=== PATIENT | female | born 2000 | race Hispanic/Latino ===

== ENCOUNTER 2022-05-30 18:10 | Emergency (ER) | END 2022-05-30 19:00 | disposition home or self-care (01) | LOC: CSHERS 18:10 | DX: S61.301A Unspecified open wound of left index finger with damage to nail, initial encounter (principal); X58.XXXA Exposure to other specified factors, initial encounter | CPT/HCPCS: 99283 ==

== ENCOUNTER 2024-08-27 11:10 | Inpatient (IN) | payer OTHER ==
[2024-08-27] MEDS ORDERED: Carboprost 250 MCG/ML AMP IM PRN (11:34)
[2024-08-27] MEDS ORDERED: Promethazine HCl 25 MG/ML VIAL IM PRN (11:34)
[2024-08-27] MEDS ORDERED: Misoprostol 200 MCG TAB PR PRN (11:34)
[2024-08-27] MEDS ORDERED: Ibuprofen 800 MG TAB PO PRN (11:34)
[2024-08-27] MEDS ORDERED: Diphenoxylate HCl/Atropine Tablet PO PRN (11:34)
[2024-08-27] MEDS ORDERED: Lidocaine 1% (PF) 30 ML VIAL SC PRN (11:34)
[2024-08-27] MEDS ORDERED: Tranexamic Acid 1,000 MG/10 ML VIAL IVP PRN (11:34)
[2024-08-27] MEDS ORDERED: Methylergonovine 0.2 MG/ML VIAL IM PRN (11:34)
[2024-08-27] MEDS ORDERED: hydrALAZINE 20 MG/ML VIAL SLOW IVP PRN (11:34)
[2024-08-27] MEDS ORDERED: Oxytocin 30 units/NS 500 ML 500 ML IV SCH ×2 (11:45)
[2024-08-27 11:52] LABS: Hematocrit 32.8 % (34.9-44.5); Hemoglobin 10.2 g/dL (12.0-15.5); Mean Corpuscular HGB CONC 31.1 g/dL (32.0-36.0); Mean Corpuscular Hemoglobin 23.8 pg (27.0-33.0); Mean Corpuscular Volume 76.5 fL (81.6-98.3); Platelet Count 392 10x3/uL (150-450); RBC Distribution Width 13.5 % (11.5-14.5); Red Blood Cell (RBC) Count 4.29 10x6/uL (3.90-5.03); White Blood Cell (WBC) Count 13.62 10x3/uL (3.5-10.5)
[2024-08-27 12:45] LABS: HBsAg Index 0.17 S/CO (0-0.99); Hep B Surf Ag - L&D Non-Reactive S/CO (NonReactive)
[2024-08-27 12:46] LABS: Syphilis Antibody Nonreactive (Nonreactive); Syphilis Antibody Index 0.08 S/CO (<1.00 Non-Reactive)
[2024-08-27 18:59] VITALS: BMI 38.9
[2024-08-27] MEDS: Lactated Ringer's 1,000 ML IV SCH (19:22)
[2024-08-27] MEDS: fentaNYL 50 mcg/mL 1 mL Vial ONE (20:19)
[2024-08-27] MEDS: fentaNYL 50 mcg/mL 1 mL Vial SLOW IVP PRN (22:27)
[2024-08-28] MEDS: fentaNYL/Ropivacaine Epidural 100 ML ONE (02:23)
[2024-08-28] MEDS: Misoprostol 100 MCG TAB VAG SCH (02:24)
[2024-08-28] MEDS ORDERED: Naloxone HCl 0.4 mg/ml Vial IVP PRN ×2 (02:46)
[2024-08-28] MEDS ORDERED: Moisturizing Cream (Eucerin) 113 GM JAR TOP PRN (02:46)
[2024-08-28] MEDS ORDERED: diphenhydrAMINE 50 MG/ML VIAL IVP PRN (02:46)
[2024-08-28] MEDS ORDERED: Ondansetron PF 4 MG/2 ML Vial IVP PRN ×2 (02:46→21:41)
[2024-08-28] MEDS ORDERED: ePHEDrine Sulfate 50 MG/10 ML VIAL SLOW IVP PRN (02:46)
[2024-08-28] MEDS ORDERED: Lactated Ringer's 500 ML IV PRN (02:46)
[2024-08-28] MEDS ORDERED: Promethazine HCl 25 MG/ML VIAL IM PRN ×2 (02:46→21:41)
[2024-08-28] MEDS ORDERED: Communication Order-Pharmacy FS SCH (03:00)
[2024-08-28 05:55] LABS: ALT (SGPT) 9 U/L (Less than 34); AST (SGOT) 16 U/L (11-34); Albumin 2.8 g/dL (3.1-4.5); Alkaline Phosphatase 148 U/L (40-110); Anion Gap 11 mmol/L (10-20); BUN (Urea Nitrogen) 9 mg/dL (7.0-18.7); Bilirubin, Total 0.5 mg/dL (0.3-1.2); Calc. Creatinine Clearance 232 mL/min (70-130); Calcium 8.6 mg/dL (7.8-10.44); Carbon Dioxide 21 mmol/L (22-29); Chloride 108 mmol/L (98-107); Estimated GFR 127; Globulin 3.3 g/dL (2.4-3.5); Glucose 73 mg/dL (70-105); Protein, Total 6.1 g/dL (6.0-8.3); Sodium 136 mmol/L (136-145)
[2024-08-28] MEDS: Oxytocin 30 units/NS 500 ML 500 ML IV SCH (07:26)
[2024-08-28] MEDS: Ondansetron PF 4 MG/2 ML Vial IVP PRN (10:25)
[2024-08-28] MEDS: fentaNYL 2 mcg/Ropivacaine 0.2% Epidural 100 ML CADD EPIDURAL SCH (11:55)
[2024-08-28] MEDS: CEFAZOLIN 1 GM VIAL ONE (19:53)
[2024-08-28] MEDS ORDERED: CEFAZOLIN 1 GM in Sodium Chloride 0.9% 100 ML IVPB SCH (20:30)
[2024-08-28] MEDS ORDERED: Milk Of Magnesia 30 ML UDCUP PO PRN (21:41)
[2024-08-28] MEDS ORDERED: Lanolin Ointment 7 GM TUBE TOP PRN (21:41)
[2024-08-28] MEDS ORDERED: Oxytocin 30 units/NS 500 ML 500 ML IV SCH (21:41)
[2024-08-28] MEDS ORDERED: Preparation H Ointment 28 GM TUBE PR PRN (21:41)
[2024-08-28] MEDS ORDERED: hydrALAZINE 20 MG/ML VIAL SLOW IVP PRN (21:41)
[2024-08-28] MEDS ORDERED: Misoprostol 200 MCG TAB VAG PRN (21:41)
[2024-08-28] MEDS ORDERED: Methylergonovine 0.2 MG/ML VIAL IM PRN (21:41)
[2024-08-28] MEDS ORDERED: Bisacodyl 10 MG SUPP PR PRN (21:41)
[2024-08-28] MEDS ORDERED: Boostrix 0.5 ML (Tdap) VIAL (>/=7 yrs of age) IM ONE (21:41)
[2024-08-28] MEDS: Acetaminophen 325 MG TAB PO PRN (21:42)
[2024-08-28] MEDS: Ibuprofen 800 MG TAB PO SCH (21:51)
[2024-08-28] MEDS: Docusate 100 MG CAP PO SCH (23:36)
[2024-08-28] MEDS: Benzocaine-Menthol 82.5 ML CAN TOP PRN (23:37)
[2024-08-29 05:04] LABS: #Basophils 0.07 10x3/uL (0.0-0.2); #Eosinophils 0.13 10x3/uL (0.0-0.5); #Monocytes 1.54 10x3/uL (0.0-1.1); #Neutrophils 14.75 10x3/uL (1.5-8.4); %Basophils 0.4 % (0.0-2.0); %Eosinophils 0.7 % (0.0-6.0); %Lymphocytes 14.5 % (18.0-47.0); %Monocytes 7.9 % (0.0-10.0); Hematocrit 25.9 % (34.9-44.5); Hemoglobin 8.4 g/dL (12.0-15.5); Mean Corpuscular HGB CONC 32.4 g/dL (32.0-36.0); Mean Corpuscular Hemoglobin 24.9 pg (27.0-33.0); Mean Corpuscular Volume 76.6 fL (81.6-98.3); Mean Platelet Volume 10.9 fL (7.4-10.4); Platelet Count 281 10x3/uL (150-450); RBC Distribution Width 13.9 % (11.5-14.5); Red Blood Cell (RBC) Count 3.38 10x6/uL (3.90-5.03)
[2024-08-29] MEDS: Prenatal Vitamin 1 TAB PO SCH (09:43)
[2024-08-29] MEDS: Docusate 100 MG CAP PO SCH (09:44)
[2024-08-29] MEDS: HYDROcodone/Acetaminophen 5/325 mg Tablet PO SCH (09:44)
[2024-08-29] MEDS: Ferrous Sulfate 325 MG TAB PO SCH (17:42)
[2024-08-30 10:41] VITALS: TEMP 98.5
[2024-08-30 15:33] VITALS: BP 125/69
== END 2024-08-30 15:55 | disposition home or self-care (01) | DRG 807 ==
LOC: CSHLD 11:10 → CSHPP 08-28 22:05
PROVIDERS: ADMIT Family Medicine; ATTEND Family Medicine
PROC: 10E0XZZ Delivery of Products of Conception, External Approach (ICD-10-PCS; principal; 2024-08-27)
PROC: 3E0DXGC Introduction of Other Therapeutic Substance into Mouth and Pharynx, External Approach (ICD-10-PCS; 2024-08-27)
PROC: 0UQMXZZ Repair Vulva, External Approach (ICD-10-PCS; 2024-08-27)
DX: O41.03X0 Oligohydramnios, third trimester, not applicable or unspecified (principal); Z37.0 Single live birth; O99.214 Obesity complicating childbirth; O71.82 Other specified trauma to perineum and vulva; Z3A.39 39 weeks gestation of pregnancy
CPT/HCPCS: 36415; 51702; 80053; 82570; 84156; 85025; 85027; 86780; 86850; 86900; 86901; 87340; J0690; J2405; J2590; J3010; J7120